=== PATIENT | female | born 1980 | race Caucasian/White ===

== ENCOUNTER 2019-05-02 13:06 | Emergency (ER) | payer BC ==
[~2019-05-02] VITALS: Ht 175.3 cm; Wt 124.3 kg
[~2019-05-02 13:06] MED LIST: MONTELUKAST SOD10 MG PO; XYZAL5 MG PO; bp med PO; cholesterol med; cholesterol med PO
--- OUTSIDE RECORDS SUMMARY | 2019-05-02 13:09 | XMS REPORT ---
Author Author [facility] Address Unknown Phone Unavailable Care Team Providers Care License And Permit Specialist Name Role Phone Unavailable Unavailable Payers Payer Name Policy Type Policy Number Effective Date Expiration Date Problems This patient has no known problems. Allergies, Adverse Reactions, Alerts Allergy Name Allergy Type Status Severity Reaction(s) Onset Date Inactive Date Treating Clinician Comments Sulfa (Sulfonamide Antibiotics) DA Active MO 2018-08-04 00:00:00 prednisone DA Active MO 2018-08-04 00:00:00 propoxyphene napsylate DA Active U 2011-12-09 00:00:00 acetaminophen DA Active U 2011-12-09 00:00:00 Medications This patient has no known medications. Results Test Description Test Time Test Comments Text Results Atomic Results Result Comments - XR ELBOW 3 + V RT 2018-11-04 12:06:00 FAX: Bg Machado MD [phone] [place]: O St: REG FAX: Carlos Ramirez [phone] Name: MARKOS COOLEY [facility] : 1980 Age/S: 38/F [address] Unit #: [id number] Loc: [place] [address] Phys: Bg Wright MD Acct: [id number] Dis Date: Status: REG RCR PHONE #: [phone] Exam Date: 11/04/2018 1134 FAX #: [phone] Reason: RIGHT ELBOW PAIN EXAMS: CPT CODE: [id number] XR ELBOW 3 + V RT [id number] CLINICAL HISTORY: RIGHT ELBOW PAIN TECHNIQUE: AP, oblique, and lateral views of the right elbow COMPARISON: None FINDINGS: No acute fracture or dislocation. There is a sclerotic eccentrically located sclerotic lesion within the medullary cavity of the humerus. This lesion demonstrates a narrow zone of transition with no destruction of the overlying bone cortex. The elbow joint is appropriately aligned. No joint effusion is appreciated. Soft tissues are within normal limits. IMPRESSION: No acute findings of the right elbow. Specifically no fracture or effusion or dislocation. 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 Osteomas can also demonstrate similar findings however these are more commonly located in the head and neck region. at 6893 Reported and signed by: Silviano Velasquez MD CC: Bg Wright MD; Carlos Johnson DO Technologist: RT RONALDO(R) Trnscrd Date/Time/By: 11/04/2018 (5194) : By: [email or web address] Orig Print D/T: S: 11/04/2018 (4668) PAGE 1 Signed Report BASIC METABOLIC PANEL 2018-08-04 16:04:00 SODIUM (test code=NA) 139 mmol/L 136-145 POTASSIUM (test code=K) 3.7 mmol/L 3.5-5.1 CHLORIDE (test code=CL) 108.0 mmol/L 98-107 CARBON DIOXIDE (test code=CO2) 23.0 mmol/L 21-32 ANION GAP (test code=GAP) 11.7 10-20 GLUCOSE (test code=GLU) 116 mg/dL 74-106 BLOOD UREA NITROGEN (test code=BUN) 9 mg/dL 7-18 GLOMERULAR FILTRATION RATE (test code=GFR) > 60 mL/min >=60 Estimated GFR by using Modified MDRD formula.Chronic kidney disease is defined as either kidney damageor GFR <60 mL/min/1.73 m2 for >3 months. CREATININE (test code=CREAT) 1.00 mg/dL 0.55-1.02 Note change in reference range due to change in reagent. BUN/CREATININE RATIO (test code=BUN/CREA) 9.0 10-20 CALCIUM (test code=CA) 9.2 mg/dL 8.5-10.1 HCG SERUM [id number] 15:55:00* Test Item Value Reference Range Comments HCG SERUM QUAL (test code=HCGQL) NEGATIVE NEGATIVE This HCGQL test is NOT applicable for MALE patients.Check with nurse about probable order error.If Tumor Marker Test needed, nurse should order test "HCGTU"(Test #[id number]) BASIC METABOLIC [id number] 15:55:00* Test Item Value Reference Range Comments SODIUM (test code=NA) 139 mmol/L 136-145 POTASSIUM (test code=K) 3.7 mmol/L 3.5-5.1 CHLORIDE (test code=CL) 108.0 mmol/L 98-107 CARBON DIOXIDE (test code=CO2) mmol/L 21-32 ANION GAP (test code=GAP) 10-20 GLUCOSE (test code=GLU) mg/dL 74-106 BLOOD UREA NITROGEN (test code=BUN) mg/dL 7-18 GLOMERULAR FILTRATION RATE (test code=GFR) mL/min >=60 CREATININE (test code=CREAT) mg/dL 0.55-1.02 BUN/CREATININE RATIO (test code=BUN/CREA) 10-20 CALCIUM (test code=CA) mg/dL 8.5-10.1 - XR CHEST 2 [id number] 15:47:00 FAX: Carlos Ramirez [phone] [place]: O St: PRE FAX: Victoria Scott MD [phone] Name: MARKOS COOLEY [facility] : 1980 Age/S: 38/F [address] Unit #: [id number] Loc: [place] [address] Phys: Victoria Pina MD Acct: [id number] Dis Date: Status: PRE SDC PHONE #: [phone] Exam Date: 08/04/2018 1529 FAX #: [phone] Reason: PRE OP EXAMS: CPT CODE: [id number] XR CHEST 2 V [id number] TECHNIQUE - XR CHEST 2 V . COMPARISON: None provided. HISTORY: 38 years Female PRE OP FINDINGS: Lungs: No nodules. No air space or interstitial lung disease. Lungs are normal in volume. Mediastinum and alli: No enlargement or other mass. Cardiovascular structures: No cardiomegaly. No abnormalities in vascular structures. Pleura/CP angles: Clear. No pneumothorax. Bones: No osseous abnormalities. Soft tissues: No abnormalities. Tubes and lines: None. Other: None. IMPRESSION: No acute cardiopulmonary abnormalities. at 1549 Reported and sig fredy by: Ace Gallegos M.D. CC: Carlos Johnson DO; Victoria Pina MD Technologist: RT Gurjit(Lei) Isaías rnscrd Date/Time/By: 08/04/2018 (2330) : By: DellaO Orig Print D/T: S: 08/04/2018 (0515) PAGE 1 Sign ed Report PROTHROMBIN [id number] 15:26:00* Test Item Value Reference Range Comments PROTHROMBIN TIME PATIENT (test code=PTP) 11.5 seconds 9.0-14.0 INTERNATIONAL NORMAL RATIO (test code=INR) 1.0 0.8-1.2 The therapeutic range for oral anticoagulant therapy formost indications is an international normalized ratio (INR)of between 2.0 and 3.0. The recommended therapeutic INRrange for various clinical situations is listed below: Clinical Situation INR range Pulmonary e mbolism treatment (2.0-3.0)Venous thrombosis treatmentVenous thrombosis prophylaxis (high risk surgery)Prevention of systemic embolism from: Acute myocardial infarction Valvular heart disease Atrial fibrillation Mechanical prosthetic heart valves (2.5-3.5) THROMBOPLASTIN TIME [id number] 15:26:00* Test Item Value Reference Range Comments THROMBOPLASTIN TIME PARTIAL (test code=PTT) 34.8 seconds 25.0-36.5 CBC W/AUTO [id number] 15:07:00* Test Item Value Reference Range Comments WHITE BLOOD CELL (test code=WBC) 8.8 K/mm3 4.5-12.5 RED BLOOD CELL (test code=RBC) 4.82 mill/mm3 3.7-5.2 HEMOGLOBIN (test code=HGB) 15.3 gram/dL 11.5-15.5 HEMATOCRIT (test code=HCT) 44.2 % 36.0-46.0 MEAN CELL VOLUME (test code=MCV) 91.7 fL 80-98 MEAN CELL HGB (test code=MCH) 31.7 picogram 27.0-33.0 MEAN CELL HGB CONCETRATION (test code=MCHC) 34.6 gram/dL 33.0-36.0 RED CELL DISTRIBUTION WIDTH (test code=RDW) 12.1 % 11.6-16.2 RED CELL DISTRIBUTION WIDTH SD (test code=RDW-SD) 40.7 fL 37.0-51.0 PLATELET COUNT (test code=PLT) 219 K/mm3 150-450 MEAN PLATELET VOLUME (test code=MPV) 10.4 fL 6.7-11.0 NEUTROPHIL % (test code=NT%) 59.8 % 39.0-69.0 IMMATURE GRANULOCYTE % (test code=IG%) 0.3 % 0.0-5.0 LYMPHOCYTE % (test code=LY%) 29.7 % 25.0-55.0 MONOCYTE % (test code=MO%) 6.7 % 0.0-10.0 EOSINOPHIL % (test code=EO%) 3.2 % 0.0-5.0 BASOPHIL % (test code=BA%) 0.3 % 0.0-1.0 NUCLEATED RBC % (test code=NRBC%) 0.0 % 0-0 NEUTROPHIL # (test code=NT#) 5.28 K/mm3 1.8-7.7 IMMATURE GRANULOCYTE # (test code=IG#) 0.03 x10 3/uL 0-0.03 LYMPHOCYTE # (test code=LY#) 2.62 K/mm3 1.0-5.0 MONOCYTE # (test code=MO#) 0.59 K/mm3 0-0.8 EOSINOPHIL # (test code=EO#) 0.28 K/mm3 0.0-0.5 BASOPHIL # (test code=BA#) 0.03 K/mm3 0.0-0.2 NUCLEATED RBC # (test code=NRBC#) 0.00 K/mm3 0.0-0.1 MANUAL DIFF REQUIRED (test code=MDIFF) NO CBC W/AUTO [id number] 15:05:00* Test Item Value Reference Range Comments WHITE BLOOD CELL (test code=WBC) K/mm3 4.5-12.5 RED BLOOD CELL (test code=RBC) mill/mm3 3.7-5.2 HEMOGLOBIN (test code=HGB) 15.3 gram/dL 11.5-15.5 HEMATOCRIT (test code=HCT) 44.2 % 36.0-46.0 MEAN CELL VOLUME (test code=MCV) fL 80-98 MEAN CELL HGB (test code=MCH) picogram 27.0-33.0 MEAN CELL HGB CONCETRATION (test code=MCHC) gram/dL 33.0-36.0 RED CELL DISTRIBUTION WIDTH (test code=RDW) % 11.6-16.2 RED CELL DISTRIBUTION WIDTH SD (test code=RDW-SD) fL 37.0-51.0 PLATELET COUNT (test code=PLT) K/mm3 150-450 MEAN PLATELET VOLUME (test code=MPV) fL 6.7-11.0 NEUTROPHIL % (test code=NT%) % 39.0-69.0 IMMATURE GRANULOCYTE % (test code=IG%) % 0.0-5.0 LYMPHOCYTE % (test code=LY%) % 25.0-55.0 MONOCYTE % (test code=MO%) % 0.0-10.0 EOSINOPHIL % (test code=EO%) % 0.0-5.0 BASOPHIL % (test code=BA%) % 0.0-1.0 NEUTROPHIL # (test code=NT#) K/mm3 1.8-7.7 LYMPHOCYTE # (test code=LY#) K/mm3 1.0-5.0 MONOCYTE # (test code=MO#) K/mm3 0-0.8 EOSINOPHIL # (test code=EO#) K/mm3 0.0-0.5 BASOPHIL # (test code=BA#) K/mm3 0.0-0.2
[2019-05-02] MEDS ORDERED: AUGMENTIN 875-1 EACH PO (13:37)
== END 2019-05-02 14:07 | disposition home or self-care (01) ==
LOC: ER 13:06
DX: R05 Cough (principal); R09.82 Postnasal drip; B34.9 Viral infection, unspecified
CPT/HCPCS: 99281

== ENCOUNTER 2022-12-23 10:31 | Emergency (ER) | payer SELFPAY ==
[~2022-12-23] VITALS: Ht 175.3 cm; Wt 115.7 kg
[~2022-12-23 10:31] MED LIST changes: +AUGMENTIN 875-1 EACH PO
[2022-12-23 11:54] LABS: BASOPHILS # (AUTO) 0.1 (0.0-0.1); BASOPHILS % 0.5 % (0.0-1.0); EOSINOPHILS # (AUTO) 0.4 (0.0-0.4); EOSINOPHILS % 3.9 % (0.0-6.0); HEMATOCRIT 45.2 % (34.2-44.1); HEMOGLOBIN 15.8 g/dL (12.0-16.0); LYMPHOCYTES # (AUTO) 2.3 (1.0-3.2); LYMPHOCYTES % 23.5 % (18.0-39.1); MEAN CORPUSCULAR HEMOGLOBIN 31.9 pg (28-32); MEAN CORPUSCULAR VOLUME 91.3 fL (81-99); MONOCYTES # (AUTO) 0.6 (0.2-0.8); MONOCYTES % 6.1 % (4.4-11.3); NEUTROPHILS # (AUTO) 6.4 (2.1-6.9); NEUTROPHILS % 65.6 % (38.7-80.0); PLATELET COUNT 227 x10e3/uL (140-360); RED BLOOD COUNT 4.95 x10e6/uL (3.6-5.1); WHITE BLOOD COUNT 9.76 x10e3/uL (4.8-10.8)
[2022-12-23 12:24] LABS: ALANINE AMINOTRANSFERASE 45 IU/L (0-55); ALBUMIN 3.9 g/dL (3.5-5.0); ALBUMIN/GLOBULIN RATIO 1.1 (0.8-2.0); ALKALINE PHOSPHATASE 84 IU/L (40-150); ANION GAP 14.7 mmol/L (8-16); BLOOD UREA NITROGEN 6 mg/dL (7-26); BUN/CREATININE RATIO 8 (6-25); CALCIUM 9.8 mg/dL (8.4-10.2); CARBON DIOXIDE 24 mmol/L (22-29); CHLORIDE 104 mmol/L (98-107); CREATININE, SERUM 0.76 mg/dL (0.57-1.11); MAGNESIUM 1.7 MG/DL (1.3-2.1); POTASSIUM 3.7 mmol/L (3.5-5.1); SODIUM 139 mmol/L (136-145)
[2022-12-23 14:44] VITALS: BP 156/86; PULSE 82; RESP 16; TEMP 98.3; O2SAT 100
== END 2022-12-23 14:39 | disposition home or self-care (01) ==
LOC: ER 11:13
DX: E11.649 Type 2 diabetes mellitus with hypoglycemia without coma (principal); I10 Essential (primary) hypertension; E78.00 Pure hypercholesterolemia, unspecified; F17.210 Nicotine dependence, cigarettes, uncomplicated
CPT/HCPCS: 36415; 80053; 82948; 83735; 84702; 85025; 99283